=== PATIENT | female | born 1980 | race Caucasian/White ===

== ENCOUNTER 2017-11-17 09:20 | Emergency (ER) | payer BC ==
[2017-11-17 09:35] VITALS: BP 115/84
--- NOTE | 2017-11-17 10:13 | UC ---
Abdominal Pain Female HPI - HPI Summary HPI Summary: Patient presents with an unremarkable past medical history. She presents today with three day onset complaints of RLQ abdominal pain. She states Wednesday when she developed the pain she thought it was because of her period, she got up and too a warm shower and the pain became severe. she knelt to the floor called her and was breathing hard, then the pain seemed to subside. She came to the walk-in and it wasn't open yet, the pain resolved so she went back home. She states she also felt bloated that day, and whenever she would cough, or move the abdomen felt tender, and still bloated. She states that since then the pain comes back during the night, around 3:30 a.m. and reports now it is in the RLQ and non-radiating. She states her period is finished. She denies fever, chills, nausea, vomiting or diarrhea. She states the pain is worse when she eats. Due to the ongoing intermittent episodes of pain she now presents for evaluation. - History of Current Complaint Hx Obtained From: Patient Hx Last Menstrual Period: 11/11/17 ?: No Onset/Duration: Sudden Onset, Lasting Hours Timing: Intermittent Episodes Lasting: Severity Initially: Severe Severity Currently: Moderate Pain Intensity: 2 Location: Discrete At: RLQ Radiates: No Radiates to: RLQ Character: Sharp Aggravating Factor(s): Food Alleviating Factor(s): Nothing Associated Signs and Symptoms: Positive: Negative - Risk Factors Ectopic Risk Factor: Negative Ovarian Torsion Risk Factor: Reproductive Age <Latoya Whyte - Last Filed: 11/17/17 10:06> <Kaylee Schwartz - Last Filed: 11/17/17 10:21> - History of Current Complaint Chief Complaint: UCAbdominalPain Stated Complaint: PAIN IN SIDE Time Seen by Provider: 11/17/17 09:53 Allergies/Adverse Reactions: Allergies Allergy/AdvReac Type Severity Reaction Status Date / Time No Known Allergies Allergy Verified 11/17/17 09:38 PMH/Surg Hx/FS Hx/Imm Hx Previously Healthy: Yes - Surgical History Surgical History: None - Family History Known Family History: Positive: None - Social History Lives: With Family Alcohol Use: Weekly Substance Use Type: None Smoking Status (MU): Never Smoked Tobacco <Latoya Whyte - Last Filed: 11/17/17 10:06> Review of Systems Constitutional: Negative Skin: Negative Eyes: Negative ENT: Negative Respiratory: Negative Cardiovascular: Negative Gastrointestinal: Abdominal Pain Genitourinary: Negative Motor: Negative Neurovascular: Negative Musculoskeletal: Negative Neurological: Negative Psychological: Negative Is Patient Immunocompromised?: No All Other Systems Reviewed And Are Negative: Yes <WhyteLatoyablane Epps - Last Filed: 11/17/17 10:06> Physical Exam Triage Information Reviewed: Yes Appearance: Well-Appearing Vital Signs: Initial Vital Signs Temp 99.3 F 11/17/17 09:32 Pulse 84 11/17/17 09:32 Resp 15 11/17/17 09:32 BP 115/84 11/17/17 09:32 Pulse Ox 99 11/17/17 09:32 Vital Signs Reviewed: Yes Eye Exam: Normal ENT Exam: Normal Neck exam: Normal Neck: Positive: 1 Respiratory Exam: Normal Respiratory: Positive: Lungs clear, Normal breath sounds, No respiratory distress Cardiovascular Exam: Normal Abdomen Description: Positive: Soft, Other: - RLQ tenderness on palpation without revound, guarding, HSM, or CVAT. Musculoskeletal Exam: Normal Neurological Exam: Normal Psychological Exam: Normal Skin Exam: Normal <Latoya Whyte - Last Filed: 11/17/17 10:06> Vital Signs: Initial Vital Signs Temp 99.3 F 11/17/17 09:32 Pulse 84 11/17/17 09:32 Resp 15 11/17/17 09:32 BP 115/84 11/17/17 09:32 Pulse Ox 99 11/17/17 09:32 <Kaylee Schwartz - Last Filed: 11/17/17 10:21> Abd Pain Female Course/Dx - Course Course Of Treatment: Patient was seen, risk factors evaluated, and VS reviewed. History and clinical findings are suspicious for acute appendicitis, oravian cyts, or torson and therefore was referred directly to the ER for evaluaitons. She was stable and asymptomatic at the time of transfer. - Differential Dx/Diagnosis Differential Diagnosis: Other - abdominal pain Provider Diagnoses: abdominal pain <Latoya Whyte - Last Filed: 11/17/17 10:06> - Differential Dx/Diagnosis Differential Diagnosis: Other - by private vehicle <Kaylee Schwartz - Last Filed: 11/17/17 10:21> Discharge - Discharge Plan Discharge Disposition Comment: go directly to the ER. <Latoya Whyte - Last Filed: 11/17/17 10:06> - Discharge Plan Discharge Disposition Comment: go directly to the ER by POV <Kaylee Schwartz - Last Filed: 11/17/17 10:21> - Discharge Plan Condition: Stable Disposition: OTHER Patient Education Materials: Abdominal Pain (ED) Referrals: Riana Thrasher MD [Primary Care Provider] - Additional Instructions: Go directly to the ER. Attestation Statement User Type: Provider - I was available for consult. This patient was seen by the MEMANUEL. The patient was not presented to, seen by, or examined by me. Nelsonj <Kaylee Schwartz - Last Filed: 11/17/17 10:21>
== END 2017-11-17 10:10 ==
LOC: UCEAST 09:20
DX: R10.31 Right lower quadrant pain (principal)
CPT/HCPCS: 99212; G0463

== ENCOUNTER 2017-11-17 10:31 | Emergency (ER) | payer BC ==
[2017-11-17 11:04] LABS: Urine Appearance Clear; Urine Blood 3+ (Negative); Urine Color Yellow; Urine Ketones Trace (Negative); Urine Protein Negative (Negative); Urine Specific Gravity 1.018 (1.010-1.030); Urine Urobilinogen Negative (Negative)
[2017-11-17 11:48] LABS: ABS Basophils 0 10^3/ul (0-0.2); ABS Eosinophils 0 10^3/ul (0-0.6); ABS Lymphocytes 1.6 10^3/ul (1.0-4.8); ABS Monocytes 0.3 10^3/ul (0-0.8); ABS Neutrophils 3.3 10^3/ul (1.5-7.7); ABS Nucleated RBC 0 10^3/ul; Eosinophil % 0.7 % (0-6); Hematocrit 37 % (35-47); Hemoglobin 12.1 g/dl (12.0-16.0); Mean Corpuscular HGB Conc 33 g/dl (31-36); Mean Corpuscular Hemoglobin 26 pg (27-31); Mean Corpuscular Volume 80 fL (80-97); Mean Platelet Volume 8 um3 (7.4-10.4); Nucleated Red Blood Cells % 0.1; Platelet Count 271 10^3/ul (150-450); Red Blood Count 4.64 10^6/ul (4.0-5.4); Red Cell Distribution Width 14 % (10.5-15); White Blood Count 5.3 10^3/ul (3.5-10.8)
[2017-11-17 12:05] LABS: EGFR Non-African American 88.3 (>60)
--- NOTE | 2017-11-17 13:23 | RAD ---
HISTORY: Right lower quadrant pain COMPARISONS: None TECHNIQUE: Multiple transverse and longitudinal ultrasound images were obtained of the right lower quadrant using grayscale and color Doppler imaging. FINDINGS: The appendix is not visualized. There is no free or loculated fluid within the right lower quadrant. IMPRESSION: THE APPENDIX IS NOT VISUALIZED. THERE IS NO FREE OR LOCULATED FLUID WITHIN THE RIGHT LOWER QUADRANT.
--- NOTE | 2017-11-17 13:29 | RAD ---
HISTORY: Right adnexal pain COMPARISONS: None TECHNIQUE: Multiple transverse and longitudinal ultrasound images were obtained of the pelvis using grayscale, color Doppler, and spectral Doppler imaging using the endovaginal transducer. FINDINGS: UTERUS: The uterus measures 8.5 x 3.4 x 4.9 cm. There is a subserosal fibroid of the posterior body measuring 3 x 3.1 x 3.1 cm ENDOMETRIUM: The endometrium is heterogeneous with a polypoid appearance towards the fundus. These polyps measuring up to 1 x 0.4 cm in size.. The endometrium measures 0.4 cm in thickness. CUL-DE-SAC: There is no free fluid within the cul-de-sac. RIGHT OVARY: The right ovary measures 7.7 x 5 x 5.6 cm. Normal arterial and venous waveforms are identifiable within the ovary on spectral Doppler imaging. There is a homogeneously hypoechoic lobulated avascular lesion of the right ovary measuring 6.1 x 4.7 x 4.3 cm in size. LEFT OVARY: The left ovary measures 3.8 x 2.6 x 1.6 cm. Normal arterial and venous waveforms are identifiable within the ovary on spectral Doppler imaging. Multiple follicles are noted. There are heterogeneously hypoechoic cystic lesions of the left ovary, including an exophytic lesion measuring 5.5 x 3.8 x 3.4 cm in size. BLADDER: The bladder is not well visualized. OTHER: None IMPRESSION: 1. NO SONOGRAPHIC FEATURES OF TORSION. PLEASE NOTE THAT PARTIAL OR INTERMITTENT TORSION MAY BE SONOGRAPHICALLY NORMAL. 2. FIBROID UTERUS. 3. THE ENDOMETRIUM IS COMPLEX WITH MULTIPLE POLYPOID LESIONS MEASURING UP TO 1 CM IN SIZE. 4. THERE ARE HYPOECHOIC LESIONS OF THE OVARIES BILATERALLY, MEASURING UP TO 6.1 CM ON THE RIGHT AND 5.5 CM ON THE LEFT. DIFFERENTIAL INCLUDES MULTIPLE ENDOMETRIOMAS VERSUS LARGE BILATERAL HEMORRHAGIC CYSTS. BILATERAL OVARIAN PARENCHYMAL TUMORS ARE ALSO WITHIN THE DIFFERENTIAL BUT ARE CONSIDERED LESS LIKELY.
[2017-11-17 14:25] VITALS: BP 113/68
--- NOTE | 2017-11-17 14:50 | ED ---
Bassam Williamson Jennifer, scribed for Alex Abebe MD on 11/17/17 at 1130 . Abdominal Pain/Female - HPI Summary HPI Summary: The patient is a 36 year old female who presents with abdominal pain that woke her up two days ago. She describes the pain as an achey pain in her lower abdomen and lower back that is on-and-off. This morning, she woke up with a sharp pain that lasted about one hour. She took Ibuprofen for her pain. The patient says this pain has woken her up three times, but she does not experience pain in the mornings. She additionally adds that eating aggravates the pain. She is sometimes constipated. She had nausea the first time she had the pain, but she denies nausea and vomiting both times afterwards. - History of Current Complaint Chief Complaint: EDAbdPain Stated Complaint: ABD PAIN-SENT FROM Time Seen by Provider: 11/17/17 10:38 Hx Obtained From: Patient Hx Last Menstrual Period: 11/11/17 Onset/Duration: Lasting Days - two days, Still Present Timing: Intermittent Episode Lasting - wakes her up at night but no pain during the day Severity Initially: Mild Severity Currently: Mild Pain Intensity: 2 Pain Scale Used: 0-10 Numeric Location: Diffuse, Discrete At: RLQ Radiates: Yes Radiates to: Back - Lowe rback Character: Other: - [place]chey Aggravating Factor(s): Nothing Alleviating Factor(s): Nothing Associated Signs and Symptoms: Positive: Back Pain, Constipation - Sometimes, Decreased Appetite - Eating aggravates the pain, Nausea - during the first episode of pain, but not the two times afterwards. Negative: Vomiting Allergies/Adverse Reactions: Allergies Allergy/AdvReac Type Severity Reaction Status Date / Time No Known Allergies Allergy Verified 11/17/17 09:38 Home Medications: Home Medications Cholecalciferol TAB* [Vitamin D TAB*] 400 unit PO DAILY 11/17/17 [History Confirmed 11/17/17] Potassium 99 mg PO DAILY 11/17/17 [History Confirmed 11/17/17] PMH/Surg Hx/FS Hx/Imm Hx Endocrine/Hematology History: Reports: Hx Thyroid Disease - Hyperthyroidism Denies: Hx Diabetes Cardiovascular History: Denies: Hx Hypertension Respiratory History: Denies: Hx Asthma, Hx Chronic Obstructive Pulmonary Disease (COPD) GI History: Denies: Hx Ulcer Infectious Disease History: No Infectious Disease History: Denies: Hx Hepatitis, Hx Human Immunodeficiency Virus (HIV), History Other Infectious Disease, Traveled Outside the [place] in Last 30 Days - Family History Known Family History: Negative: Diabetes - Social History Alcohol Use: Weekly Substance Use Type: Reports: None Smoking Status (MU): Never Smoked Tobacco Review of Systems Negative: Dental Pain Positive: Abdominal Pain, Nausea - The first time, but not the two times afterwards, Other - Constipation. Negative: Vomiting All Other Systems Reviewed And Are Negative: Yes Physical Exam - Summary Physical Exam Summary: Appearance: The patient is well-nourished in no acute distress and in no acute pain. Skin: The skin is warm and dry and skin color reflects adequate perfusion. HEENT: ~The head is normocephalic and atraumatic. The pupils are equal and reactive. The conjunctivae are clear and without drainage. ~Nares are patent and without drainage. ~Mouth reveals moist mucous membranes and the throat is without erythema and exudate. ~The external ears are intact. The ear canals are patent and without drainage. The tympanic membranes are intact. Neck: the neck is supple with full range of motion and non-tender. There are no carotid bruits. ~There is no neck vein distension. Respiratory: Chest is non-tender. ~Lungs are clear to auscultation and breath sounds are symmetrical and equal. Cardiovascular: Heart is regular rate and rhythm. ~There is no murmur or rub auscultated. ~~There is no peripheral edema and pulses are symmetrical and equal. Abdomen: The abdomen is mildly tender in the right lower quadrant. There is no rebound or guarding. ~There are normal bowel sounds heard in all four quadrants and there is no organomegaly palpated. Musculoskeletal: There is no back tenderness noted. ~Extremities are non-tender with full range of motion. ~There is good capillary refill. ~There is no peripheral edema or calf tenderness elicited. Neurological: Patient is alert and oriented to person, place and time. ~The patient has symmetrical motor strength in all four extremities. ~Cranial nerves are grossly intact. Deep tendon reflexes are symmetrical and equal in all four extremities. Psychiatric: The patient has an appropriate affect and does not exhibit any anxiety or depression. Triage Information Reviewed: Yes Vital Signs On Initial Exam: Initial Vitals Temp Pulse Resp BP Pulse Ox 98.5 F 90 17 140/97 100 11/17/17 10:32 11/17/17 10:32 11/17/17 10:32 11/17/17 10:32 11/17/17 10:32 Vital Signs Reviewed: Yes Diagnostics - Vital Signs Vital Signs Temp Pulse Resp BP Pulse Ox 11/17/17 10:48 93 100 11/17/17 10:46 142/94 11/17/17 10:32 98.5 F 90 17 140/97 100 - Laboratory Lab Results: Lab Results 11/17/17 Range/Units 10:35 Urine Color Yellow Urine Appearance Clear Urine pH 7.0 (5-9) Ur Specific [place] 1.018 (1.010-1.030) Urine Protein Negative (Negative) Urine Ketones Trace H (Negative) Urine Blood 3+ H (Negative) Urine Nitrate Negative (Negative) Urine Bilirubin Negative (Negative) Urine Urobilinogen Negative (Negative) Ur Leukocyte Esterase Trace H (Negative) Urine WBC (Auto) Trace(0-5/hpf) (Absent) Urine RBC (Auto) Trace(0-2/hpf) (Absent) Ur Squamous Epith Cells Present H (Absent) Urine Bacteria Absent (Absent) Urine Glucose Negative (Negative) Result Diagrams: 11/17/17 11:35 11/17/17 11:35 Lab Statement: Any lab studies that have been ordered have been reviewed, and results considered in the medical decision making process. - Additional Comments Diagnostic Additional Comments: Transvaginal Ultrasound. Impression: 1. NO SONOGRAPHIC FEATURES OF TORSION. PLEASE NOTE THAT PARTIAL OR INTERMITTENT TORSION MAY BE SONOGRAPHICALLY NORMAL. 2. FIBROID UTERUS. 3. THE ENDOMETRIUM IS COMPLEX WITH MULTIPLE POLYPOID LESIONS MEASURING UP TO 1 CM IN SIZE. 4. THERE ARE HYPOECHOIC LESIONS OF THE OVARIES BILATERALLY, MEASURING UP TO 6.1 CM ON THE RIGHT AND 5.5 CM ON THE LEFT. DIFFERENTIAL INCLUDES MULTIPLE ENDOMETRIOMAS VERSUS LARGE BILATERAL HEMORRHAGIC CYSTS. BILATERAL OVARIAN PARENCHYMAL TUMORS ARE ALSO WITHIN THE DIFFERENTIAL BUT ARE CONSIDERED LESS LIKELY. Dr. Abebe has reviewed this report. Ultrasound of the appendix. Impression: THE APPENDIX IS NOT VISUALIZED. THERE IS NO FREE OR LOCULATED FLUID WITHIN THE RIGHT LOWER QUADRANT. Abdominal Pain Fem Course/Dx - Course Course Of Treatment: Ms. Cameron presented with an atypical abdominal pain. She has had 3 bouts of severe pain, each one wakeiung her at night. The first was diffuse and the other two in the RLQ. During the day she has had some dull discomfort only in the RLQ and to a lesser extent in the LLQ. Her W/U was nonspecific. She has evidence of fibroids and endometrioma on U/S and this may be the source of her symptoms. She will F/U with Dr. Emmanuel and return for any worsening etc. - Diagnoses Provider Diagnoses: Abdominal pain, Fibroid, Endometriosis - Provider Notifications Discussed Care Of Patient With: Prashant Emmanuel Time Discussed With Above Provider: 13:57 Instructed by Provider To: Other - DEVANG Morales, would like to follow up with the patient. Discharge - Discharge Plan Condition: Stable Disposition: HOME Patient Education Materials: Endometriosis (ED), Abdominal Pain (ED) Referrals: Prashant Emmanuel MD [Medical Doctor] - 3 Days Additional Instructions: Follow up with DEVANG Morales, in three days. Return to the emergency department for any new or worsening symptoms. The documentation as recorded by the Bassam wilson Jennifer accurately reflects the service I personally performed and the decisions made by , Alex Abebe MD.
== END 2017-11-17 14:24 | disposition home or self-care (01) ==
LOC: ED 10:31
DX: R10.31 Right lower quadrant pain (principal); D21.9 Benign neoplasm of connective and other soft tissue, unspecified; N80.9 Endometriosis, unspecified; M54.5 Low back pain; K59.00 Constipation, unspecified; R11.0 Nausea
CPT/HCPCS: 36415; 76705; 76830; 80053; 81003; 81015; 84702; 85025; 86140; 87086; 99282